=== PATIENT | female | born 1990 | race Caucasian/White ===

== ENCOUNTER 2017-01-06 14:21 | Emergency (ER) | payer BC ==
[~2017-01-06] VITALS: Ht 149.9 cm; Wt 72.6 kg
[~2017-01-06 14:21] MED LIST: IBUPROFEN800 MG PO; TYLENOL EXTRA500 MG PO; ZANTAC150 MG PO
[2017-01-06 15:42] LABS: HEMATOCRIT 44.4 % (36.0-46.0); MCHC 33.1 G/DL (30.0-36.0); MCV 87.6 FL (83-99); MEAN PLAT.VOLUME 9.8 uM^3 (9.5-12.4); PLATELET COUNT 247 K/uL (156-360); RBC DIS.WIDTH-CV 12.4 % (11.8-14.6); RED BLOOD COUNT 5.07 M/uL (3.80-5.20); WHITE BLOOD COUNT 8.5 K/uL (4.1-10.2)
[2017-01-06 15:52] LABS: CHLORIDE 107 mEq/L (99-109); POTASSIUM 4.4 mEq/L (3.7-5.4); SODIUM 139 mEq/L (136-147)
[2017-01-06 15:54] LABS: GLUCOSE 89 mg/dL (70-99)
[2017-01-06 15:56] LABS: ANION GAP 11 MEQ/L (2-14)
[2017-01-06 15:58] LABS: GFR ESTIMATE (CALCULATED) > 59 mL/min/
[2017-01-06 15:59] LABS: UREA NITROGEN (BUN) 13 mg/dL (9-23)
[2017-01-06 16:08] LABS: QUANTITATIVE HCG < 4.0 MIU/ML
[2017-01-06 17:10] LABS: TOTAL BILIRUBIN 0.2 mg/dL (0.0-1.0)
[2017-01-06 17:11] LABS: ALKALINE PHOSPHATASE 57 IU/L (3-129)
[2017-01-06 17:14] LABS: DIRECT BILIRUBIN 0.1 mg/dL (0.0-0.3)
[2017-01-06 17:15] LABS: LIPASE 24 U/L (1.0-51.0)
[2017-01-06 17:30] LABS: ADD MIUA? YES; BILIRUBIN NEGATIVE; BLOOD NEGATIVE; COLOR YELLOW ((YELLOW)); GLUCOSE (STRIP) NEGATIVE; KETONES 20; LEUKOCYTES TRACE; NITRITE NEGATIVE; PROTEIN (STRIP) NEGATIVE; SPECIFIC GRAVITY 1.031 (1.000-1.030); UROBILINOGEN 0.2 MG/DL (0.2-1.0)
[2017-01-06 18:21] LABS: BACTERIA 1+ /HPF; EPITHELIAL CELLS 3+ /HPF; MUCUS 4+ /LPF; RED BLOOD CELLS 0-5 /HPF (0-5)
[2017-01-06 18:58] VITALS: BP 122/88
== END 2017-01-06 19:00 | disposition home or self-care (01) ==
LOC: EME 14:21
PROVIDERS: Nurse Practitioner Family
DX: K59.00 Constipation, unspecified (principal); K62.5 Hemorrhage of anus and rectum; R42 Dizziness and giddiness; R53.83 Other fatigue; R11.0 Nausea; F17.200 Nicotine dependence, unspecified, uncomplicated
CPT/HCPCS: 74000; 74177; 80048; 80076; 81003; 83690; 84702; 85027; 86900; 86901; 99281; 99284

== ENCOUNTER 2017-05-28 18:21 | Emergency (ER) | payer OTHER ==
[~2017-05-28] VITALS: Ht 149.9 cm; Wt 76.6 kg
[2017-05-28 19:49] LABS: ADD MIUA? YES; BILIRUBIN NEGATIVE; BLOOD SMALL; COLOR YELLOW ((YELLOW)); GLUCOSE (STRIP) NEGATIVE; KETONES NEGATIVE; LEUKOCYTES SMALL; NITRITE NEGATIVE; PROTEIN (STRIP) 30; SPECIFIC GRAVITY 1.034 (1.000-1.030)
[2017-05-28 20:08] LABS: BACTERIA RARE /HPF; EPITHELIAL CELLS 1+ /HPF; MUCUS 3+ /LPF; RED BLOOD CELLS 0-5 /HPF (0-5); UCUL ADDED? YES
[2017-05-28 20:09] LABS: CASTS NONE SEEN /LPF; CRYSTALS NONE SEEN
[2017-05-28] MEDS ORDERED: MACROBID100 MG PO (21:25)
[2017-05-28] MEDS ORDERED: MOTRIN600 MG PO (21:26)
[2017-05-28 21:32] VITALS: BP 126/82
== END 2017-05-28 21:35 | disposition home or self-care (01) ==
LOC: EME 18:21
PROVIDERS: Physician Assistant
DX: N39.0 Urinary tract infection, site not specified (principal); Z97.5 Presence of (intrauterine) contraceptive device; F17.200 Nicotine dependence, unspecified, uncomplicated
CPT/HCPCS: 76856; 81003; 87086; 99281; 99284